=== PATIENT | female | born 1955 | race Caucasian/White ===

== ENCOUNTER → 2017-04-11 | Outpatient (CLI) | payer OTHER ==
[~2017-04-11] MED LIST: ALBU8.5H2 IH; ALBU8.5H4 IH; BENZ200C25 PO; BUDE10.2 IH; CETI10TA20 PO; CLON0.253 PO; CLON0.5T60 PO; CYCL10TA9 PO; DCS100C PO; DULO60CA6 PO; ESOM20SU PO; ESTR1TAB24 PO; FURO-125 PO; HYDR-91 PO; IBP800T PO; NITR-65 PO; OLME20TA5 PO; OXYC-471 PO; PANT40TA2 PO; PHEN200T27 PO; POTA99TA7 PO; RANI150T90 PO; RT-ALBUINH IH; SIMV40TA2 PO; TOPI100T11 PO; TOPI200T25 PO
--- NOTE | 2017-04-11 16:06 | Diagnostic Imaging Report ---
PROCEDURE: MR imaging cervical spine without contrast. INDICATION: Recent surgery on left shoulder with left shoulder pain. TECHNIQUE: Multiplanar, multisequence MR imaging of the cervical spine was performed without contrast. CORRELATION STUDY: None. FINDINGS: There is straightening and mild reversal of the normal cervical lordosis. There is trace anterolisthesis of C3 on C4 and very mild retrolisthesis of C4 on C5 and C5 on C6. Cervical vertebral body heights overall are fairly well maintained. No definitive geographic lesion. There are degenerative signal changes about the endplates particularly at C6-C7 level. Cervicocranial junction unremarkable. C2-C3 level unremarkable. C3-C4 level demonstrates mild loss of disc space height. There is posterior spondylitic ridging with disc osteophyte formation. This results in mild flattening of the ventral thecal sac. Minimal effacement of the perineural fat, left greater than right without significant stenosis. C4-C5 level demonstrates moderate loss of disc space height. Posterior disc osteophyte formation is present. There is prominent endplate osteophyte extending into the neural foramina greatest on the left where there is bilateral foraminal narrowing left greater than right. AP dimension spinal canal greater than 1 cm. C5-C6 level shows moderate loss of disc space height. Rather prominent posterior disc osteophyte formation is present. This results in mild flattening of the ventral thecal sac. Rather significant bilateral foraminal narrowing, left greater than right owing to disc and osteophyte formation. AP dimension spinal canal at approximately 9 mm. C6-7 level with moderate loss of disc space height. Prominent posterior disc osteophyte formation is present. Disc osteophytes results in bilateral foraminal narrowing. AP dimension of the spinal canal at approximately 9-10 mm. C7-T1 level unremarkable. IMPRESSION: 1. Rather prominent multilevel cervical spondylosis. There is rather prominent disc osteophyte formation at particularly C4-C5, C5-C6, C6-C7 and to a lesser degree C3-C4 levels which result in foraminal narrowing disproportionate greater on the left compared to the right. Dictated by: Dictated on workstation # [id number]
== END ==
LOC: RAD 10:03
PROVIDERS: ATTEND Orthopaedic Surgery
DX: M54.12 Radiculopathy, cervical region (principal)
CPT/HCPCS: 72141

== ENCOUNTER → 2017-05-25 | Outpatient (CLI) | payer OTHER ==
--- NOTE | 2017-05-25 11:27 | Diagnostic Imaging Report ---
3 views of the left knee. INDICATION: Left knee pain. FINDINGS: No fracture, dislocation or radiopaque foreign body is seen. No suprapatellar effusion is noted. No arthritic changes are seen. IMPRESSION: Unremarkable exam. Dictated by: Dictated on workstation # [id number]
== END ==
LOC: RAD 09:18
PROVIDERS: ATTEND Family Medicine
DX: M25.562 Pain in left knee (principal)
CPT/HCPCS: 73562

== ENCOUNTER → 2017-10-11 | Outpatient (CLI) | payer OTHER ==
--- NOTE | 2017-10-11 19:11 | Diagnostic Imaging Report ---
INDICATION: Neck pain. COMPARISON: None. FINDINGS: Three views of the cervical column demonstrate normal alignment. There is no subluxation or fracture. Moderate diffuse degenerative changes are seen throughout. There is no osseous lesion. IMPRESSION: Diffuse degenerative changes without traumatic malalignment or fracture. Dictated by: Dictated on workstation # [id number]
== END ==
LOC: RAD 17:30
DX: M47.812 Spondylosis without myelopathy or radiculopathy, cervical region (principal)
CPT/HCPCS: 72040

== ENCOUNTER 2018-02-21 21:03 | Emergency (ER) | payer OTHER ==
[~2018-02-21] VITALS: Ht 162.6 cm; Wt 77.1 kg
--- NOTE | 2018-02-21 21:24 | ED Lower Extremity ---
General Chief Complaint: Lower Extremity Stated Complaint: FALL- L FOOT INJ History of Present Illness Date Seen by Provider: Feb 21, 2018 Time Seen by Provider: 21:21 Initial Comments Patient is a 62-year-old female who presents to emergency room with left ankle pain after falling down one step. She denies any other injuries or LOC. Onset: just prior to arrival Method of Injury: fell Modifying Factors: Improves With Immobilization Allergies and Home Medications Allergies Coded Allergies: Sulfa (Sulfonamide Antibiotics) (Unverified Allergy, Unknown, HIVES, 09/15) codeine (Unverified Allergy, Unknown, SWELLING OF HANDS AND FEET, 09/17/15 ) STATES SHE IS ABLE TO TAKE OXYCODONE AND HYDROCODONE Home Medications Albuterol Sulfate 8.5 Gm Hfa.aer.ad, 2 PUFF IH QID PRN for WHEEZING, (Reported) Budesonide/Formoterol Fumarate 10.2 Gm Hfa.aer.ad, 2 PUFF IH BID, (Reported) Cetirizine HCl 10 Mg Tablet, 10 MG PO DAILY, (Reported) Clonazepam 0.5 Mg/Tab Tab.rapdis, 1-2 EACH PO BID PRN, (Reported) Cyclobenzaprine Hcl 10 Mg Tablet, 10 MG PO TID PRN for MUSCLE SPASMS, (Reported) Duloxetine Hcl 60 Mg Capsule.dr, 60 MG PO DAILY, (Reported) Estradiol 1 Mg Tablet, 0.5 MG PO DAILY, (Reported) Furosemide 20 Mg Tablet, 20 MG PO daily M,W,F, (Reported) Pantoprazole Sodium 40 Mg Tablet.dr, 40 MG PO DAILY Prescribed by: DARYL CERVANTES on 06/24/16 1354 Potassium 99 Mg Tablet, 99 MG PO daily M,W,F, (Reported) Simvastatin 40 Mg Tablet, 40 MG PO DAILY, (Reported) Topiramate 100 Mg Tablet, 100 MG PO BID, (Reported) Patient Home Medication List Home Medication List Reviewed: Yes Constitutional: no symptoms reported, see HPI EENTM: see HPI, no symptoms reported Respiratory: no symptoms reported, see HPI Cardiovascular: no symptoms reported, see HPI Gastrointestinal: no symptoms reported, see HPI Genitourinary: no symptoms reported, see HPI Musculoskeletal: joint pain (left ankle) Skin: no symptoms reported, see HPI Psychiatric/Neurological: No Symptoms Reported Past [id number]-Wqyccr Hx Patient Social History Recent Foreign Travel: No Contact w/Someone Who Travel: No Respiratory Respiratory Disorders: Asthma, Chronic Bronchitis, Sleep Apnea Reproductive System Hx Reproductive Disorders: No Sexually Transmitted Disease: No HIV/AIDS: No Female Reproductive Disorders: Denies Gastrointestinal Gastrointestinal Disorders: Gastroesophageal Reflux Musculoskeletal Musculoskeletal Disorders: Chronic Back Pain HEENT Loss of Vision: Bilateral Hearing Impairment: Bilateral Hearing Aide Psychosocial Behavioral Health Disorders: Anxiety, Depression Blood Transfusions Adverse Reaction to a Blood Tr: No Physical Exam Vital Signs Vital Signs - First Documented 02/21/18 21:20 Temp 98.3 Pulse 82 Resp 18 B/P (MAP) 144/74 (97) Pulse Ox 97 O2 Delivery Room Air Capillary Refill : General Appearance: WD/WN, no apparent distress HEENT: PERRL/EOMI, normal ENT inspection, TMs normal, pharynx normal Neck: non-tender, full range of motion, supple, normal inspection Cardiovascular: normal peripheral pulses, regular rate, rhythm, no edema, no gallop, no JVD, no murmur Respiratory: chest non-tender, lungs clear, normal breath sounds, no respiratory distress, no accessory muscle use Gastrointestinal: normal bowel sounds, non tender, soft, no organomegaly, no pulsatile mass Back: normal inspection (1), no CVA tenderness, no vertebral tenderness Hips: bilateral hip non-tender, bilateral hip normal inspection, bilateral hip normal range of motion Knees: bilateral knee non-tender, bilateral knee normal inspection, bilateral knee normal range of motion Ankles: left ankle pain, left ankle soft tissue tenderness, left ankle swelling , left ankle other (normal sensation, normal dorsal pedal pulses.) Feet: bilateral foot non-tender, bilateral foot normal inspection, bilateral foot normal range of motion Neurologic/Tendon: normal sensation, normal motor functions, normal tendon functions, responds to pain Neurologic/Psychiatric: dowel inspector II-XII nml as tested, no motor/sensory deficits, alert, normal mood/affect, oriented x 3 Skin: normal color, warm/dry Lymphatic: no adenopathy Progress/Results/Core Measures Results/Orders My Orders Orders - EMILY CARRILLO APRN Ankle, Left, 3 Views (02/21/18 21:20) Vital Signs/I&O Vital Sign - Last 12Hours 02/21/18 21:20 Temp 98.3 Pulse 82 Resp 18 B/P (MAP) 144/74 (97) Pulse Ox 97 O2 Delivery Room Air Progress Note : Progress Note NAME: RAZIA MORRISON [facility] REC#: [id number] PT STATUS: REG ER : 1955 PHYSICIAN: EMILY CARRILLO APRN ADMIT DATE: 02/21/18/ER Signed Date of Exam:02/21/18 ANKLE, LEFT, 3 VIEWS INDICATION: Pain. FINDINGS: There is an oblique fracture through the distal fibula. Fracture line extends into the superolateral ankle mortise. The plafonds and talar dome are intact. There is no other fracture or dislocation. IMPRESSION: Minimally displaced oblique fracture of the distal fibula which extends in the superior lateral ankle mortise. Dictated by: Dictated on workstation # [id number] Dict: 02/21/182135 Trans: 02/21/182139 [facility] [id number] Interpreted by: BEN COLMENARES MD Electronically signed by: BEN COLMENARES MD 02/21/182139 in preparation for discharge patient was asked about pain control and statses she does not need any prescription pain medications, tylenol and motrin work just fine for her. Departure Communication (Admissions) Progress Notes distal fibula fracture on xray. Will do posterior short leg splint, rx for pain control, she already has crutches, ortho follow up Impression Impression: Primary Impression: Fracture of distal fibula Disposition: 01 HOME, SELF-CARE Condition: Stable Departure-Patient Inst. Decision time for Depature: 21:48 Referrals: FRENCH CONTRERAS MD,BARI OVIEDO MD, MD, JACQUELINE S DO (PCP/Family) Primary Care Physician OLYA HEADLEY MICHAEL P MD Patient Instructions: Ankle Fracture (DC) Add. Discharge Instructions: You may use ibuprofen and Tylenol as needed for pain relief. Keep the splint on at all times and use ice as needed for inflammation and pain. Keep the splint dry. This is a minimal weight-bearing fracture, continue to use your crutches as needed. All discharge instructions reviewed with patient and/or family. Voiced understanding. EMILY CARRILLO APRN Feb 21, 2018 21:24
--- NOTE | 2018-02-21 21:40 | Diagnostic Imaging Report ---
INDICATION: Pain. FINDINGS: There is an oblique fracture through the distal fibula. Fracture line extends into the superolateral ankle mortise. The plafonds and talar dome are intact. There is no other fracture or dislocation. IMPRESSION: Minimally displaced oblique fracture of the distal fibula which extends in the superior lateral ankle mortise. Dictated by: Dictated on workstation # [id number]
[2018-02-21 22:05] VITALS: BP 144/74
== END 2018-02-21 22:05 | disposition home or self-care (01) ==
LOC: EDUNIT# 21:03 → ER 21:05
DX: S82.832A Other fracture of upper and lower end of left fibula, initial encounter for closed fracture (principal); J45.909 Unspecified asthma, uncomplicated; G47.30 Sleep apnea, unspecified; K21.9 Gastro-esophageal reflux disease without esophagitis; F41.9 Anxiety disorder, unspecified; F32.9 Major depressive disorder, single episode, unspecified; Z88.2 Allergy status to sulfonamides; Z88.5 Allergy status to narcotic agent; Z79.52 Long term (current) use of systemic steroids; W10.8XXA Fall (on) (from) other stairs and steps, initial encounter
CPT/HCPCS: 29515; 73610

== ENCOUNTER → 2018-06-12 | Outpatient (CLI) | payer OTHER ==
--- NOTE | 2018-06-12 09:07 | Diagnostic Imaging Report ---
INDICATION: Routine screening. COMPARISON: 08/11/2015 and 02/23/2013. TECHNIQUE: 2D and 3D bilateral screening mammography was performed with CAD. FINDINGS: Scattered fibroglandular densities are identified bilaterally. A circumscribed density in the upper and slightly outer left breast appears stable and most consistent with a benign etiology. No new mass or malignant appearing microcalcifications are seen. The axillae are unremarkable. IMPRESSION: No mammographic features suspicious for malignancy are identified. ACR BI-RADS Category 2: Benign findings. Result letter will be mailed to the patient. Note: At least 10% of breast cancer is not imaged by mammography. Dictated by: Dictated on workstation # [id number]
== END ==
LOC: RAD 07:46
PROVIDERS: ATTEND Family Medicine
DX: Z12.31 Encounter for screening mammogram for malignant neoplasm of breast (principal)
CPT/HCPCS: 77067

== ENCOUNTER 2019-01-08 13:23 | Outpatient (RCR) | payer OTHER ==
[2019-01-08 13:56] LABS: BASOPHILS % (AUTO) 1 % (0-10); EOSINOPHILS # (AUTO) 0.2 10^3/uL (0.0-0.3); EOSINOPHILS % (AUTO) 2 % (0-10); HEMATOCRIT 44 % (35-52); HEMOGLOBIN 14.8 G/DL (11.5-16.0); LYMPHOCYTES # (AUTO) 2.5 X 10^3 (1.0-4.0); LYMPHOCYTES % (AUTO) 36 % (12-44); MEAN CORPUSCULAR HEMOGLOBIN 31 PG (25-34); MEAN CORPUSCULAR HGB CONC 34 G/DL (32-36); MEAN CORPUSCULAR VOLUME 90 FL (80-99); MEAN PLATELET VOLUME 9.6 FL (7.4-10.4); MONOCYTES # (AUTO) 0.7 X 10^3 (0.0-1.0); MONOCYTES % (AUTO) 10 % (0-12); NEUTROPHILS # (AUTO) 3.6 X 10^3 (1.8-7.8); NEUTROPHILS % (AUTO) 51 % (42-75); PLATELET COUNT 298 10^3/uL (130-400); RED CELL DISTRIBUTION WIDTH 12.7 % (10.0-14.5)
[2019-01-08 14:13] LABS: ALBUMIN 4.2 GM/DL (3.2-4.5); BILIRUBIN,TOTAL 0.3 MG/DL (0.1-1.0); CALCIUM 9.7 MG/DL (8.5-10.1); CREATININE SERUM 1.2 MG/DL (0.60-1.30); POTASSIUM 5.2 MMOL/L (3.6-5.0); TOTAL PROTEIN 7.2 GM/DL (6.4-8.2)
== END 2019-04-08 | disposition home or self-care (01) ==
LOC: ONC 13:23
PROVIDERS: ATTEND Internal Medicine Hematology & Oncology
DX: D58.2 Other hemoglobinopathies (principal); I10 Essential (primary) hypertension; K21.9 Gastro-esophageal reflux disease without esophagitis; E78.5 Hyperlipidemia, unspecified; Z79.899 Other long term (current) drug therapy
CPT/HCPCS: 36415; 80053; 85025; 99214

== ENCOUNTER → 2020-06-10 | Outpatient (CLI) | payer OTHER ==
[~2020-06-10] MED LIST changes: -CETI10TA20 PO; +CETI10TA21 PO
--- NOTE | 2020-06-10 12:51 | Diagnostic Imaging Report ---
INDICATION: Routine screening Comparison is made to prior mammogram 06/12/2018 and 08/11/2015. 2-D and 3-D bilateral screening mammography was performed with CAD. Both breasts remain heterogeneously dense, limiting the sensitivity of mammography. The parenchymal pattern is stable. No mass or malignant appearing microcalcifications are seen. Axillae are unremarkable. IMPRESSION: BI-RADS Category 1 No mammographic features suspicious for malignancy are identified. ACR BI-RADS Category 1: Negative. Result letter will be mailed to the patient. Note: At least 10% of breast cancer is not imaged by mammography. Dictated by: Dictated on workstation # [id number]
== END ==
LOC: RAD 07:59
PROVIDERS: ATTEND Family Medicine
DX: Z12.31 Encounter for screening mammogram for malignant neoplasm of breast (principal)
CPT/HCPCS: 77063; 77067

== ENCOUNTER 2021-05-01 05:34 | Outpatient (RCR) | payer MEDICARE, OTHER ==
[~2021-05-01] VITALS: Ht 162.6 cm; Wt 76.4 kg
[~2021-05-01 05:34] MED LIST changes: -CETI10TA21 PO; +CETI10TA49 PO; +GABA-486 PO; -OXYC-471 PO; +OXYC1TAB11 PO; +PRAV10TA PO
== END 2021-05-01 14:09 | disposition home or self-care (01) ==
LOC: PREOP 05:34
PROVIDERS: ATTEND Internal Medicine
DX: Z01.812 Encounter for preprocedural laboratory examination (principal); R10.32 Left lower quadrant pain; R19.7 Diarrhea, unspecified; R13.10 Dysphagia, unspecified; Z20.822 Contact with and (suspected) exposure to COVID-19
CPT/HCPCS: 87635

== ENCOUNTER → 2021-05-05 | Day surgery (SDC) | payer MEDICARE, OTHER ==
--- NOTE | 2021-04-29 08:07 | HISTORY AND PHYSICAL ---
DATE OF SERVICE: COLONOSCOPY HISTORY AND PHYSICAL DATE OF ADMISSION: ____. REFERRING PHYSICIAN: Karla Millard DO. HISTORY OF PRESENT ILLNESS: The patient is a 66-year-old white female referred by Dr. Millard for screening colonoscopy. She is also being set up for diagnostic EGD. She reports her grandmother was diagnosed with colon cancer in her early 80s. Her mother of pancreatic cancer, but was 97 years old. Father had difficulty with reflux. She has been having some intermittent dysphagia and reports a past history of erosive esophagitis. She underwent colonoscopy and EGD five years ago. Review of Dr. Portillo' note reveals grade II erosive changes without evidence for stricture formation and rather extensive sigmoid diverticulosis without evidence for diverticulitis, but no evidence for neoplasia. The patient reports long history of intermittent abdominal pain and intermittent diarrhea. She first underwent what sounds like a rigid sigmoidoscopy, when she was in the high school. She still reports intermittent urgency minimal cramping and no bright red blood per rectum or melena. Dysphagia, she reports to the mid precordial area predominantly to solids. She has been taking pantoprazole and Carafate. PAST MEDICAL HISTORY: Significant for some fluid retention, mild hyperlipidemia and depression. She takes Cymbalta 60 mg daily, sucralfate 1 gram twice daily, pravastatin 10 mg daily, topiramate 100 mg b.i.d., pantoprazole 40 mg daily and Lasix 20 mg on Tuesday, Tuesday and Tuesday for fluid retention. 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 FAMILY HISTORY: As noted in the HPI. REVIEW OF SYSTEMS: CONSTITUTIONAL: The patient denies change in weight, night sweats, chills or fever. GASTROINTESTINAL: As noted in the HPI. CARDIOVASCULAR: Denies chest pain, orthopnea, PND, pedal edema, syncope or presyncope. PULMONARY: The patient denies dyspnea on exertion, cough or wheezing. PHYSICAL EXAMINATION: GENERAL: Reveals a pleasant white female in no acute distress. VITAL SIGNS: Weight 168 pounds and blood pressure 120/80. HEENT: Unremarkable. Sclerae nonicteric. CHEST: Clear to auscultation. CARDIOVASCULAR: Reveals a regular rate and rhythm without murmur, S3 or S4. ABDOMEN: Soft, supple without mass, organomegaly or tenderness. There is some mild epigastric discomfort and left lower quadrant discomfort to palpation without rebound or guarding. No bruits are noted. ASSESSMENT AND PLAN: The patient is being set up for screening colonoscopy with family history for colon cancer, index case being her grandmother. She is also being set up for diagnostic EGD for dysphagia with a history of erosive esophagitis. She has continued to avoid aspirin and nonsteroidal medication in the interim. Prep instructions with the Suprep kit were given and questions were answered. I thank you for the referral of this pleasant lady. Job ID: [id number] DocumentID: [id number] Dictated Date: 04/22/2021 15:55:45 Environmental Health Safety Engineer Date: 04/22/2021 16:09:25 Dictated By: YNES KENNY MD
[~2021-05-05] VITALS: Ht 162.6 cm; Wt 76.4 kg
[~2021-05-05] MED LIST changes: +HURRICAINE EXT TUBE (BENZOCAINE) ONE; +HURRICAINE EXT TUBE (BENZOCAINE) XX PRN; +LACTATED RINGERS 1,000 ML IV ONE; +LACTATED RINGERS 1,000 ML IV STA; +LIDOCAINE JELLY 2% 6 ML SYRINGE MM PRN; +LIDOCAINE JELLY 2% 6 ML SYRINGE ONE; +MIDAZOLAM 2 MG/2 ML (VERSED) VIAL ONE; +PROPOFOL INJECTION 50 ML IV ONE
[2021-05-05 07:45] VITALS: BP 137/94
[2021-05-05 08:20] VITALS: BP_SYST 97; BP_DIAS 66; BP_DIAS 97
[2021-05-05 08:24] VITALS: BP 102/71
--- NOTE | 2021-05-05 08:26 | Pre-Op Note & Conscious Sedat ---
Pre-Operative Progress Note H&P Reviewed The H&P was reviewed, patient examined and no changes noted. Date H&P Reviewed: May 05, 2021 Time H&P Reviewed: 07:15 Conscious Sedation Pre-Proced ASA Score 2 For ASA 3 and 4: Consider anesthesia and medical clearance. Also, for patients with a history of failed moderate sedation consider anesthesia. Airway Lungs Heart ASA score ASA 1: a normal healthy patient ASA 2: a patient with a mild systemic disease (mid diabetes, controlled hypertension, obesity ASA 3: a patient with a severe systemic disease that limits activity (angina, COPD, prior Myocardial infarction) ASA 4: a patient with an incapacitating disease that is a constant threat to life (CHF, renal failure) ASA 5: a moribund patient not expected to survive 24 hrs. (ruptured aneurysm) ASA 6: a declared brain- patient whose organs are being harvested. For emergent operations, add the letter E after the classification Mallampati Classification Grade 2 Sedation Plan Analgesia, Amnesia, Plan communicated to team members, Discussed options with patient/fam, Discussed risks with patient/fam The patient is an appropriate candidate to undergo the planned procedure, sedation, and anesthesia. The patient immediately re-assessed prior to indication. YNES KENNY MD May 05, 2021 08:26
[2021-05-05 08:28] VITALS: BP 108/74
[2021-05-05 08:30] VITALS: BP 117/76
[2021-05-05 08:50] VITALS: BP 117/88
--- NOTE | 2021-05-05 13:15 | OPERATIVE REPORT ---
DATE OF SERVICE: 05/05/2021 PANENDOSCOPY SUMMARY INDICATION FOR THE PROCEDURE: Panendoscopy was performed for dysphagia with reflux symptoms as well as intermittent diarrhea with left lower quadrant abdominal pain. DESCRIPTION OF PROCEDURE: The patient was placed in the left lateral decubitus position. The endoscope was inserted in the oral cavity and under direct visualization, the esophagus was intubated. Endoscope was passed down the esophagus through the stomach and second portion of the duodenum. Careful inspection was made as the endoscope was withdrawn. FINDINGS: Proximal and mid esophagus were unremarkable. The Z line was proximally placed at 34 cm secondary to a moderate size 2 to 3 cm hiatal hernia, erosive esophagitis changes were present judged to be LA grade B without evidence for stricture formation. No obvious evidence for Barrera's was noted with linear ulcerations extending as much as 2 cm from the Z-line. Photographic documentation was obtained. Biopsies were obtained and submitted for histopathology. The cardia, fundus, antrum, pylorus, pyloric channel, duodenal bulb and second portion of the duodenum were unremarkable to gross inspection. We then proceeded with the colonoscopy. DESCRIPTION OF PROCEDURE: Prior to undergoing colonoscopy, digital rectal evaluation was performed. Anal sphincter tone was normal and the perianal reflexes intact. No evidence for internal or external hemorrhoids were noted. No abnormalities were noted on digital inspection of the anal canal or distal rectal vault. The colonoscope was inserted into the rectum and under direct visualization advanced to the cecum. The cecum was identified by identification of the ileocecal valve and cecal strap. Photographic documentation was obtained. Quality of prep was fair. FINDINGS: There was no evidence for internal or external hemorrhoids and the rectum was unremarkable. A moderate number of small to medium size sigmoid diverticulum were present without evidence for diverticulitis. Haustral hypertrophy was noted. The descending colon and splenic flexure was unremarkable. Present in the proximal transverse colon was a 2 to 3 mm sessile polyp that was photographed and biopsied and ablated with no subsequent blood loss. The hepatic flexure, ascending colon and cecum were unremarkable. ASSESSMENT: 1. Moderate diverticular disease and confined to the sigmoid colon was present without evidence for diverticulitis. 2. One diminutive sessile 2 to 3 mm polyp was present in the proximal transverse colon, was biopsied and ablated with no subsequent blood loss. Considering family history as long as there are no surprises on histopathology report, I would advocate consideration for repeat screening colonoscopy in 5 years. 3. In regard to EGD evaluation for erosive esophagitis, I discussed non-reflux measures and advised the patient to increase pantoprazole to 40 mg b.i.d. Discussed Gaviscon tablets for breakthrough symptoms and especially in the light of her family history for coronary artery disease and hyperlipidemia, cutting back on carbohydrates and increased activity to effect weight loss. I thank you for the referral of this pleasant lady. Job ID: [id number] DocumentID: [id number] Dictated Date: 05/05/2021 09:09:40 Gas Turbine Powerplant Mechanic Helper Date: 05/05/2021 13:14:36 Dictated By: YNES KENNY MD
--- NOTE | 2021-05-05 14:18 | Anesthesia-General Post-Op ---
MAC Patient Condition Mental Status/LOC: Same as Preop Cardiovascular: Satisfactory Nausea/Vomiting: Absent Respiratory: Satisfactory Pain: Controlled Complications: Absent Post Op Complications Complications None Follow Up Care/Instructions Patient Instructions None needed. Anesthesiology Discharge Order Discharge Order Patient is doing well, no complaints, stable vital signs, no apparent adverse anesthesia problems. No complications reported per nursing. KANDY TORRES CRNA May 05, 2021 14:18
== END ==
LOC: ENDO 06:59
PROVIDERS: ATTEND Internal Medicine
DX: D12.3 Benign neoplasm of transverse colon (principal); K57.30 Diverticulosis of large intestine without perforation or abscess without bleeding; K21.00 Gastro-esophageal reflux disease with esophagitis, without bleeding; K22.10 Ulcer of esophagus without bleeding; K44.9 Diaphragmatic hernia without obstruction or gangrene; J45.909 Unspecified asthma, uncomplicated; G47.33 Obstructive sleep apnea (adult) (pediatric); G43.909 Migraine, unspecified, not intractable, without status migrainosus; I12.9 Hypertensive chronic kidney disease with stage 1 through stage 4 chronic kidney disease, or unspecified chronic kidney disease; N18.30 Chronic kidney disease, stage 3 unspecified; F41.9 Anxiety disorder, unspecified; E78.5 Hyperlipidemia, unspecified; F32.9 Major depressive disorder, single episode, unspecified; Z79.899 Other long term (current) drug therapy; Z91.19 Patient's noncompliance with other medical treatment and regimen; Z90.49 Acquired absence of other specified parts of digestive tract; Z80.0 Family history of malignant neoplasm of digestive organs